=== PATIENT | male | born 1950 | race Caucasian/White ===

== ENCOUNTER → 2019-10-30 | Outpatient (CLI) | payer MEDICARE, MEDICAID ==
[2019-10-30 10:51] LABS: Albumin 3.4 g/dL (3.4-5.0); Calcium 9.5 mg/dL (8.5-10.1); Potassium 4.1 mmol/L (3.5-5.1)
[2019-10-30 10:54] LABS: BUN/Creatinine Ratio 15.3; Bilirubin, Total 1.1 mg/dL (0.2-1.0); CRP High Sensitivity 0.27 mg/dL (< 0.3); Total Protein 8.1 g/dL (6.4-8.2); Uric Acid 6.6 mg/dL (3.5-7.2)
== END | disposition home or self-care (01) ==
LOC: LAB 10:03
PROVIDERS: ATTEND Podiatrist
DX: M79.671 Pain in right foot (principal); M10.9 Gout, unspecified; I25.10 Atherosclerotic heart disease of native coronary artery without angina pectoris
CPT/HCPCS: 36415; 80053; 84550; 86141; 86431

== ENCOUNTER → 2020-10-19 | Outpatient (CLI) | payer MEDICARE, MEDICAID | END | disposition home or self-care (01) | LOC: Rad HDHVI 09:00 | PROVIDERS: ATTEND Internal Medicine Cardiovascular Disease | DX: R63.4 Abnormal weight loss (principal); Z86.2 Personal history of diseases of the blood and blood-forming organs and certain disorders involving the immune mechanism | CPT/HCPCS: 93306 ==

== ENCOUNTER → 2020-10-26 | Outpatient (CLI) | payer MEDICARE, MEDICAID ==
[2020-10-26 15:15] LABS: INR 1.57 (0.9-1.15); Partial Thromboplastin Time 43.8 sec (23.0-31.2)
== END | disposition home or self-care (01) ==
LOC: LAB 14:06
PROVIDERS: ATTEND Internal Medicine Cardiovascular Disease
DX: D53.0 Protein deficiency anemia (principal); D68.51 Activated protein C resistance
CPT/HCPCS: 36415; 85302; 85305; 85306; 85610; 85730

== ENCOUNTER → 2020-11-02 | Outpatient (CLI) | payer MEDICARE, MEDICAID ==
[~2020-11-02] VITALS: Ht 185.4 cm; Wt 86.2 kg
== END | disposition home or self-care (01) ==
LOC: Rad HDHVI 14:01
PROVIDERS: ATTEND Internal Medicine Cardiovascular Disease
DX: Z13.0 Encounter for screening for diseases of the blood and blood-forming organs and certain disorders involving the immune mechanism (principal); I10 Essential (primary) hypertension; E11.9 Type 2 diabetes mellitus without complications
CPT/HCPCS: 78452; 93017; 96374; A9500

== ENCOUNTER 2020-12-10 11:33 | Day surgery (SDC) | payer MEDICARE, MEDICAID ==
[2020-12-07 15:15] LABS: Basophils # (auto) 0 10 ^3/uL (0-0.2); Basophils % (auto) 0.6 % (0.0-2.0); Eosinophils # (auto) 0.1 10 ^3/uL (0-0.8); Eosinophils % (auto) 1.9 % (0.0-7.0); Hematocrit 39.1 % (41.0-53.0); Hemoglobin 13.6 g/dL (13.5-17.5); Lymphocytes # (auto) 1.3 10 ^3/uL (0.4-5.4); Lymphocytes % (auto) 39.8 % (10.0-50.0); Mean Corpuscular Hemoglobin 32.4 pg (28.0-32.0); Mean Corpuscular Hgb Conc. 34.7 g/dL (32.0-36.0); Mean Corpuscular Volume 93.3 fL (80.0-100.0); Monocytes # (auto) 0.4 10 ^3/uL (0-1.3); Monocytes % (auto) 12.6 % (0.0-12.0); Neutrophils # (auto) 1.4 10 ^3/uL (1.6-8.6); Neutrophils % (auto) 45.1 % (37.0-80.0); Nucleated Red Blood Cells % 0.2 %; Red Blood Cells 4.19 10^6/uL (4.5-5.90); White Blood Cell 3.2 10^3/uL (4.4-10.8)
[2020-12-07 15:28] LABS: INR 1.1 (0.9-1.15); Partial Thromboplastin Time 33.2 sec (23.0-31.2)
[2020-12-07 15:29] LABS: Albumin 3.5 g/dL (3.4-5.0); Calcium 9.3 mg/dL (8.5-10.1); Potassium 4.4 mmol/L (3.5-5.1)
[2020-12-07 15:32] LABS: BUN/Creatinine Ratio 18.1; Bilirubin, Total 0.4 mg/dL (0.2-1.0); Total Protein 7.6 g/dL (6.4-8.2)
[~2020-12-10] VITALS: Ht 185.4 cm; Wt 86.2 kg
[~2020-12-10 11:33] MED LIST: ASCO500T11 PO; CYAN1TAB14 PO; ENAL5TAB10 PO; METF-370 PO; RIVA20TA PO
[2020-12-10] MEDS: fentaNYL CITRATE 100 MCG/2 ML VL ONE ×2 (13:01→13:04)
[2020-12-10] MEDS: diphenhdrAMINE HCL 50 MG/1 ML VL ONE ×2 (13:01→13:04)
[2020-12-10] MEDS: MIDAZOLAM HCL 5 MG/ML-1ML VIAL ONE ×3 (13:01→13:07)
[2020-12-10 13:58] VITALS: BP 154/81
== END 2020-12-10 14:30 | disposition home or self-care (01) ==
LOC: GI 11:33
PROVIDERS: ATTEND Internal Medicine Gastroenterology
DX: R63.4 Abnormal weight loss (principal); K64.8 Other hemorrhoids; K63.89 Other specified diseases of intestine; F17.200 Nicotine dependence, unspecified, uncomplicated; Z20.822 Contact with and (suspected) exposure to COVID-19; Z98.890 Other specified postprocedural states; Z79.899 Other long term (current) drug therapy; Z86.19 Personal history of other infectious and parasitic diseases; Z86.718 Personal history of other venous thrombosis and embolism; Z79.84 Long term (current) use of oral hypoglycemic drugs
CPT/HCPCS: 36415; 45378; 80053; 82962; 85025; 85610; 85730; C9803; J1200; J2250; J3010; J7030; U0003; G0500

== ENCOUNTER 2022-04-12 13:56 | Day surgery (SDC) | payer MEDICARE, MEDICAID ==
[2022-04-10 15:02] LABS: Basophils # (auto) 0.1 10 ^3/uL (0-0.2); Basophils % (auto) 1.2 % (0.0-2.0); Eosinophils # (auto) 0 10 ^3/uL (0-0.8); Eosinophils % (auto) 0.8 % (0.0-7.0); Hematocrit 39.7 % (41.0-53.0); Hemoglobin 12.9 g/dL (13.5-17.5); Lymphocytes # (auto) 1.5 10 ^3/uL (0.4-5.4); Mean Corpuscular Hemoglobin 29.7 pg (28.0-32.0); Mean Corpuscular Hgb Conc. 32.5 g/dL (32.0-36.0); Mean Corpuscular Volume 91.4 fL (80.0-100.0); Monocytes # (auto) 0.6 10 ^3/uL (0-1.3); Monocytes % (auto) 11.9 % (0.0-12.0); Neutrophils # (auto) 3.1 10 ^3/uL (1.6-8.6); Neutrophils % (auto) 58.1 % (37.0-80.0); Nucleated Red Blood Cells % 0.1 %; Red Blood Cells 4.34 10^6/uL (4.5-5.90); Red Cell Distribution Width 13.5 % (11.8-14.3); White Blood Cell 5.4 10^3/uL (4.4-10.8)
[2022-04-10 15:24] LABS: INR 1.22 (0.9-1.15); Partial Thromboplastin Time 35.9 sec (24.6-33.4)
[2022-04-10 15:49] LABS: Albumin 3.6 g/dL (3.4-5.0); BUN/Creatinine Ratio 16.2; Calcium 9.3 mg/dL (8.5-10.1); Potassium 4.5 mmol/L (3.5-5.1)
[2022-04-10 15:52] LABS: Bilirubin, Total 0.4 mg/dL (0.2-1.0); Total Protein 7.3 g/dL (6.4-8.2)
[~2022-04-12] VITALS: Ht 185.4 cm; Wt 86.2 kg
[2022-04-12] MEDS ORDERED: LIDOCAINE VISCOUS 2% 15ML UD ONE (14:31)
[2022-04-12] MEDS ORDERED: SODIUM CHLORIDE LOCK 10 ML ONE (14:31)
[2022-04-12] MEDS: fentaNYL CITRATE 100 MCG/2 ML VL ONE ×2 (16:07→16:11)
[2022-04-12] MEDS: diphenhdrAMINE HCL 50 MG/1 ML VL ONE ×2 (16:07→16:09)
[2022-04-12] MEDS: MIDAZOLAM HCL 5 MG/ML-1ML VIAL ONE ×2 (16:07→16:11)
[2022-04-12 17:25] VITALS: BP 161/84
== END 2022-04-12 17:40 | disposition home or self-care (01) ==
LOC: GI 13:56
PROVIDERS: ATTEND Internal Medicine Gastroenterology
DX: K21.00 Gastro-esophageal reflux disease with esophagitis, without bleeding (principal); R19.5 Other fecal abnormalities; K29.90 Gastroduodenitis, unspecified, without bleeding; K44.9 Diaphragmatic hernia without obstruction or gangrene; K59.00 Constipation, unspecified; I10 Essential (primary) hypertension; E11.9 Type 2 diabetes mellitus without complications; F41.9 Anxiety disorder, unspecified; M10.9 Gout, unspecified; Z98.890 Other specified postprocedural states; Z20.822 Contact with and (suspected) exposure to COVID-19
CPT/HCPCS: 36415; 43239; 80053; 82962; 85025; 85610; 85730; 88305; 88342; 99152; J1200; J2250; J3010; J7030; U0003

== ENCOUNTER → 2022-05-17 | Outpatient (CLI) | payer MEDICARE, MEDICAID | END | disposition home or self-care (01) | LOC: Rad HDHVI 09:03 | PROVIDERS: ATTEND Internal Medicine Cardiovascular Disease | DX: I80.292 Phlebitis and thrombophlebitis of other deep vessels of left lower extremity (principal); I87.2 Venous insufficiency (chronic) (peripheral) | CPT/HCPCS: 93925; 93970 ==

== ENCOUNTER → 2022-11-08 | Outpatient (CLI) | payer MEDICARE, MEDICAID ==
[~2022-11-08] VITALS: Ht 185.4 cm; Wt 88.5 kg
[~2022-11-08] MED LIST changes: +ADENOSINE 74 MG in GIVE UN-DILUTED 0 ML IV ONE; +ADENOSINE 90 MG/30 ML INJ IV ONE
== END | disposition home or self-care (01) ==
LOC: Rad HDHVI 13:23
PROVIDERS: ATTEND Internal Medicine Cardiovascular Disease
DX: I10 Essential (primary) hypertension (principal); E11.21 Type 2 diabetes mellitus with diabetic nephropathy; E11.40 Type 2 diabetes mellitus with diabetic neuropathy, unspecified; I82.409 Acute embolism and thrombosis of unspecified deep veins of unspecified lower extremity; E78.00 Pure hypercholesterolemia, unspecified
CPT/HCPCS: 78452; 93005; 96374; 96375; A9500; J0153

== ENCOUNTER → 2022-11-13 | Outpatient (CLI) | payer MEDICARE, MEDICAID ==
[~2022-11-13] MED LIST changes: -ADENOSINE 74 MG in GIVE UN-DILUTED 0 ML IV ONE; -ADENOSINE 90 MG/30 ML INJ IV ONE
== END | disposition home or self-care (01) ==
LOC: Rad HDHVI 09:01
PROVIDERS: ATTEND Internal Medicine Cardiovascular Disease
DX: I08.1 Rheumatic disorders of both mitral and tricuspid valves (principal); I11.9 Hypertensive heart disease without heart failure; R00.2 Palpitations
CPT/HCPCS: 93306

== ENCOUNTER → 2024-03-31 | Outpatient (CLI) | payer MEDICARE, MEDICAID ==
[~2024-03-31] MED LIST changes: -ENAL5TAB10 PO; +ENAL5TAB22 PO
== END | disposition home or self-care (01) ==
LOC: Rad HDHVI 10:13
PROVIDERS: ATTEND Internal Medicine Cardiovascular Disease
DX: R60.0 Localized edema (principal)
CPT/HCPCS: 93970

== ENCOUNTER 2024-12-03 08:55 | Outpatient (CLI) | payer MEDICARE, MEDICAID | END 2024-12-03 17:00 | disposition home or self-care (01) | LOC: Rad HDHVI 08:55 | PROVIDERS: ATTEND Internal Medicine Cardiovascular Disease | DX: I08.8 Other rheumatic multiple valve diseases (principal); I10 Essential (primary) hypertension; E78.5 Hyperlipidemia, unspecified | CPT/HCPCS: 93306 ==

== ENCOUNTER 2024-12-10 14:31 | Outpatient (CLI) | payer MEDICARE, MEDICAID ==
[~2024-12-10] VITALS: Ht 185.4 cm; Wt 86.2 kg
== END 2024-12-10 17:00 | disposition home or self-care (01) ==
LOC: Rad HDHVI 14:31
PROVIDERS: ATTEND Internal Medicine Cardiovascular Disease
DX: I49.3 Ventricular premature depolarization (principal); I11.0 Hypertensive heart disease with heart failure; I50.43 Acute on chronic combined systolic (congestive) and diastolic (congestive) heart failure; E11.21 Type 2 diabetes mellitus with diabetic nephropathy; I34.0 Nonrheumatic mitral (valve) insufficiency; I73.9 Peripheral vascular disease, unspecified; R00.2 Palpitations; E78.5 Hyperlipidemia, unspecified; F10.11 Alcohol abuse, in remission
CPT/HCPCS: 78452; 93017; A9500; 96374